=== PATIENT | female | born 1935 | race Caucasian/White ===

== ENCOUNTER → 2016-11-26 | Outpatient (CLI) | payer OTHER, BC | LOC: FLAB 13:00 | PROVIDERS: ATTEND Orthopaedic Surgery Orthopaedic Surgery of the Spine | DX: M51.36 Other intervertebral disc degeneration, lumbar region (principal); K44.9 Diaphragmatic hernia without obstruction or gangrene; I25.10 Atherosclerotic heart disease of native coronary artery without angina pectoris ==

== ENCOUNTER → 2016-12-04 | Outpatient (CLI) | payer OTHER, BC ==
[~2016-12-04] MED LIST: IOPAMIDOL (ISOVUE-M 200) 20 ML VIAL ONE; LIDOCAINE 1% 300 MG/30 ML SDV ONE
== END ==
LOC: FIMAGING 10:55
PROVIDERS: ATTEND Orthopaedic Surgery Orthopaedic Surgery of the Spine
PROC: 3E0R3KZ Introduction of Other Diagnostic Substance into Spinal Canal, Percutaneous Approach (ICD-10-PCS; principal; 2016-12-04)
DX: M48.06 Spinal stenosis, lumbar region (principal); M99.73 Connective tissue and disc stenosis of intervertebral foramina of lumbar region; M51.86 Other intervertebral disc disorders, lumbar region; M89.38 Hypertrophy of bone, other site; M41.56 Other secondary scoliosis, lumbar region
CPT/HCPCS: 64493; 72132; 72265; Q9966

== ENCOUNTER → 2017-03-05 | Outpatient (CLI) | payer OTHER, BC | LOC: BHFA 14:00 | PROVIDERS: ATTEND Internal Medicine Cardiovascular Disease | DX: R94.31 Abnormal electrocardiogram [ECG] [EKG] (principal); I10 Essential (primary) hypertension ==

== ENCOUNTER → 2017-03-07 | Outpatient (CLI) | payer OTHER, BC | LOC: BHFA 09:00 | PROVIDERS: ATTEND Internal Medicine Cardiovascular Disease | DX: R94.31 Abnormal electrocardiogram [ECG] [EKG] (principal); I10 Essential (primary) hypertension; I73.9 Peripheral vascular disease, unspecified | CPT/HCPCS: 78452; 93017; A9500; J2785 ==

== ENCOUNTER 2017-03-18 09:25 | Observation (INO) | payer OTHER, BC ==
--- NOTE | 2017-03-17 22:54 | GHP ---
[f rep st] HISTORY AND PHYSICAL DATE OF ADMISSION: 03/18/2017 HISTORY: The patient is a pleasant 81-year-old woman well known to my practice. She is 2-1/2 years status post an L3-L5 laminectomy with left L5-S1 foraminotomy. She had done well up until a couple o f months ago when she began having increasing left lower extremity pain. She has tried an epidural s teroid injection and a selective nerve root block. These that helped, but not long lasting. She has also tried gabapentin. She is electing to undergo further surgery, and this will be in the form of a left L4-5 facet joint cyst excision revision. She denies any loss of bowel or bladder control. On a visual analog scale of 1-10, she rates her daily pain a 7 to an 8. 100% of her pain is referable to the left lower extremity. SOCIAL HISTORY: Negative for tobacco. She quit smoking approximately 28 years ago. She denies use of tobacco. FAMILY HISTORY: Negative. PAST MEDICAL HISTORY: Irritable bowel syndrome, osteoporosis, hypertension, glaucoma, depression, ga stroesophageal reflux disease, and COPD. 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 ALLERGIES: Bactrim. MEDICATIONS: Include gabapentin 100 mg p.o. b.i.d., Tylenol, Lidoderm patch, Advair, bumetanide, alonso cium, citalopram, clonidine patch, doxazosin, fluticasone, hydralazine, ipratropium, Klor-Con, omepra zole, and Prolia. PHYSICAL EXAMINATION: GENERAL: The patient is alert and oriented x3. CARDIAC: Regular rate and rh ythm without detectable murmur, rub, or gallop. LUNGS: Clear to auscultation. She does not have an y wheezing or rhonchi. NEUROLOGIC: Shows strength of bilateral lower extremities to be 5/5 througho ut with the exception of the left tibialis anterior that is 4+ over 5. She does not have a foot drop . She has decreased sensation in the left dorsum of the foot in the L5 distribution. Straight leg r aising is negative x2. She has an antalgic gait in the left lower extremity. RADIOGRAPHIC STUDIES: The patient has had a CT myelogram, as she is unable to have an MRI due to her cochlear implant. She has a very large left L4-5 synovial facet joint cyst, which also extends dist ally to the level of the L5 vertebral body. IMPRESSION: 1. Left L5 radiculopathy with motor weakness. 2. Two and a half years status post L3-L5 laminectomy and left L5-S1 foraminotomy by myself. 3. 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 PLAN: The patient will undergo a general anesthetic, and then a revision left L4-5 facet joint cyst excision. She understands the potential risks, benefits, possible complications, including but not l imited to, dural tear with CSF leak, meningitis, nerve root injury, partial or complete paralysis, la ck of improvement of symptomatology, inability of obtaining the entire facet cyst, need for further s urgery, DVT, PE, pneumonia, stroke, heart attack, hemorrhage, blindness, and . I will admit her postoperatively for 23 hour observation given her numerous medical conditions. She will be n.p.o. a fter midnight tonight. Copy requested to: Pres[facility]gery Testing /[id number]/MODL
[~2017-03-18 09:25] MED LIST changes: +*PHM DO NOT USE-GENTAMICIN PF 1MG/ML IV PED/NEWBORN SYR IV SCH; +BACITRACIN 50,000 UNITS/10 ML SYR IRR ONE; +BUPIVACAINE 0.25% 30 ML SDV ONE; +GENTAMICIN 80 MG/NACL 100 ML IV ONE; -IOPAMIDOL (ISOVUE-M 200) 20 ML VIAL ONE; -LIDOCAINE 1% 300 MG/30 ML SDV ONE; +THROMBIN (BOVINE) 20,000 UNIT VIAL TP ONE; +ceFAZolin 2 GM/DEXTROSE 100 ML IV ONE
[2017-03-18] MEDS ORDERED: *PHM DO NOT USE-GENTAMICIN PF 1MG/ML IV PED/NEWBORN SYR IV ONE (09:30)
[2017-03-18] MEDS ORDERED: ceFAZolin 2 GM/DEXTROSE 100 ML IV ONE (09:58)
[2017-03-18 10:30] LABS: % IMMATURE GRANULYOCYTES 0.1 % (0.0-1.1); ABSOLUTE IMMATURE GRANULOCYTES 0.01 10^3/uL (0.00-0.10); ADD DIFF? NO; ADD MORPH? NO; ADD SCAN? NO; ATYPICAL LYMPHOCYTE FLAG 10 (0-99); FRAGMENT RBC FLAG 0 (0-99); HEMATOCRIT 39.1 % (38.0-47.0); HEMOGLOBIN 12.8 g/dL (12.6-16.3); LEFT SHIFT FLG 0 (0-99); LIPEMIA HEMOLYSIS FLAG 80 (0-99); MEAN CELL HEMOGLOBIN 30.2 pg (27.9-34.1); MEAN CELL HEMOGLOBIN CONCENTR. 32.7 g/dL (32.4-36.7); MEAN CELL VOLUME 92.2 fL (81.5-99.8); MEAN PLATELET VOLUME 11.6 fL (8.7-11.7); PLATELET CLUMPS FLAG 0 (0-99); PLATELET COUNT 270 10^3/uL (150-400); RED BLOOD CELL COUNT 4.24 10^6/uL (4.18-5.33); RED CELL DISTRIBUTION WIDTH 13.7 % (11.5-15.2)
[2017-03-18] MEDS ORDERED: LR 1,000 ML IV ONE (10:32)
[2017-03-18 10:34] LABS: INR 0.98 (0.83-1.16); PROTIME(PATIENT) 12.9 SEC (12.0-15.0)
--- NOTE | 2017-03-18 10:34 | PDANEPAE ---
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 - Pulmonary History Hx COPD: Yes Hx Asthma/Reactive Airway Disease: No Hx Recent Upper Respiratory Infection: No Hx Oxygen in Use at Home: No Hx Sleep Apnea: No Sleep Apnea Screening Result - Last Documented: Positive Pulmonary History Comment: USES INHALERS FOR COPD - Neurologic History Hx Cerebrovascular Accident: No Hx Seizures: No Hx Dementia: No - Endocrine History Hx Diabetes: No Hypothyroid: Yes Hyperthyroid: No Obesity: no Endocrine History Comment: HYPOTHYROIDISM - Renal History Hx Renal Disorders: Yes Renal History Comment: HX OF RENAL STENT PLACED - Liver History Hx Hepatic Disorders: No - Neurological & Psychiatric Hx Hx Neurological and Psychiatric Disorders: Yes Neurological / Psychiatric History Comment: LITTLE ANXIETY - Cancer History Hx Cancer: Yes Cancer History Comment: 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 IBS - Other Health History Other Health History: VERY HARD OF HEARING HAS COCHLEAR IMPLANT AND HEARING AIDES - Chronic Pain History Chronic Pain: Yes (BACK AND LEFT LEG PAIN) - Surgical History Prior Surgeries: RENAL ARTERY STENT 2005. EYE SURGERY 2004. ROTATOR CUFF IN 2000,1998. CATARACTS. HYSTERECTOMY back sx 2013. HERBER 1974. COCHLEAR IMPLANT 2009 ANE Review of Systems Review of Systems: - Exercise capacity METS (RN): 3 METS ANE Patient History - Allergies Allergies/Adverse Reactions: sulfamethoxazole [From Bactrim] Allergy (Verified 02/22/17 10:07) Rash trimethoprim [From Bactrim] Allergy (Verified 02/22/17 10:07) Rash - Home Medications Home Medications: Bumetanide [Bumex (*)] 2 mg PO DAILY 04/06/14 [Last Taken 03/18/17] Citalopram Hydrobromide [Celexa] 40 mg PO DAILY 04/06/14 [Last Taken 03/18/17] Doxazosin Mesylate [Cardura 4 MG (*)] 4 mg PO DAILY 04/06/14 [Last Taken ] Fluticasone Nasal [Flonase Nasal Fortuna] 2 sprays NASAL DAILY 04/06/14 [Last Taken 04/18/14] Ipratropium 0.06% Nasal [Atrovent 0.06% Nasal] 2 sprays EACHNARE BID 04/06/14 [ Last Taken 04/19/14] Isradipine [Isradipine 5 mg (RX)] 10 mg PO BID 04/06/14 [Last Taken 1 Week Ago ~ 03/11/17] Latanoprost 0.005% [Xalatan 0.005% (*)] 1 drops EACHEYE HS 04/06/14 [Last Taken 03/18/17] Levalbuterol Inhaler [Xopenex Hfa Inhaler (*)] 2 puffs IH DAILY PRN 04/06/14 [ Last Taken 04/19/14] Levothyroxine [Synthroid 50 mcg (*)] 50 mcg PO DAILY06 04/06/14 [Last Taken 1 Week Ago ~03/11/17] Montelukast Sodium [Singulair 10 mg (*)] 10 mg PO DAILY@1800 04/06/14 [Last Taken 04/19/14] Omeprazole [Prilosec 20 mg] 20 mg PO BID 04/06/14 [Last Taken 03/18/17] Potassium Cl [Klor-Con 20 meq (*)] 60 meq PO DAILY 04/06/14 [Last Taken 03/18/17 ] clonIDINE [Catapres (*)] 0.1 mg PO DAILY PRN 04/06/14 [Last Taken 04/19/14] clonIDINE [Catapres-Tts (*)] 2 patch TD Q7D 04/06/14 [Last Taken 3 Months Ago ~ 12/16/16] hydrALAZINE [Apresoline] 25 mg PO BID 04/06/14 [Last Taken 03/18/17] Cholecalciferol (Vitamin D3) [Vitamin D3] 5,000 unit PO HS 02/22/17 [Last Taken 1 Week Ago ~03/11/17] Herbals/Supplements -Info Only 1 ea PO DAILY 02/22/17 [Last Taken 1 Week Ago ~] Ibuprofen [Motrin (*)] 800 mg PO Q4-6PRN PRN 02/22/17 [Last Taken Unknown] Polyethylene Glycol 3350 [Miralax 17 gm (*)] 17 gm PO DAILY 02/22/17 [Last Taken 03/18/17] Timolol 0.25% [TIMOPTIC 0.25% (*)] 1 drop RTEYE DAILY 02/22/17 [Last Taken Unknown] Tiotropium Inhaler [Spiriva Handihaler] 18 mcg IH DAILY 02/22/17 [Last Taken ] Zoledronic Acid 4 mg IV ONCE 02/22/17 [Last Taken 01/28/17] traZODone [traZODONE 50MG (*)] 50 mg PO HS 02/22/17 [Last Taken 03/17/17] - Smoking Hx Smoking Status: Former smoker - Family Anes Hx Family Hx Anesthesia Complications: NONE ANE Labs/Vital Signs - Labs Result Diagrams: 03/18/17 09:58 03/18/17 09:58 - Vital Signs Height: 152.4 cm Weight: 62.596 kg ANE Physical Exam - Airway Neck exam: decreased ROM Mallampati Score: Class 3 Mouth exam: dentures - Pulmonary Pulmonary: no respiratory distress, no rales or rhonchi, clear to auscultation - Cardiovascular Cardiovascular: regular rate and rhythym, systolic murmur - ASA Status ASA Status: III ANE Anesthesia Plan Anesthesia Plan: general endotracheal anesthesia Total IV Anesthesia: No
[2017-03-18 10:35] LABS: APTT 26.9 SEC (23.0-38.0)
[2017-03-18 10:39] LABS: ANION GAP 12 mEq/L (8-16); CALCIUM 9.4 mg/dL (8.5-10.4); CARBON DIOXIDE 25 mEq/l (22-31); CHLORIDE 103 mEq/L (97-110); CREATININE 0.8 mg/dL (0.6-1.0); GLOMERULAR FILTRATION RATE > 60; GLUCOSE 103 mg/dL (70-100); POTASSIUM 4.6 mEq/L (3.5-5.2); SODIUM 140 mEq/L (134-144)
--- NOTE | 2017-03-18 11:05 | PDHPUP ---
History & Physical Update H&P update statement: This history and physical update is based on an assessment of the patient which was completed after admission or registration (within 24 hours), but prior to the surgery/procedure. H&P update: H&P reviewed & patient examined, no change in patient's condition since H&P completed
[2017-03-18] MEDS ORDERED: ONDANSETRON 4 MG/2 ML VIAL ONE (11:24)
[2017-03-18] MEDS ORDERED: PROPOFOL/EMULSION 500 MG/50 ML BOTTLE IV ONE (11:24)
[2017-03-18] MEDS ORDERED: fentaNYL 100 MCG/2 ML INJ ONE ×3 (11:24→14:54)
[2017-03-18] MEDS ORDERED: ROCURONIUM 50 MG/5 ML VIAL ONE (11:24)
[2017-03-18] MEDS ORDERED: RANITIDINE 50 MG/2 ML VIAL ONE (11:24)
[2017-03-18] MEDS ORDERED: PROPOFOL 200 MG/20 ML VIAL ONE (11:24)
[2017-03-18] MEDS ORDERED: REMIFENTANIL HCL 1 MG VIAL ONE (11:24)
[2017-03-18] MEDS ORDERED: SUCCINYLCHOLINE CHLORIDE*ANESTHESIA ONLY*200 MG/10 ML SYR IVP ONE (11:24)
[2017-03-18] MEDS ORDERED: DEXAMETHASONE 4 MG/ML VIAL ONE (11:24)
[2017-03-18] MEDS ORDERED: LIDOCAINE 2% 5 ML SDV ONE (11:27)
[2017-03-18] MEDS ORDERED: PHENYLEPHRINE HCL 100 MCG/ML SYR ONE ×2 (11:31→12:21)
[2017-03-18] MEDS ORDERED: epHEDrine SULFATE 10 MG/ML SYR ONE ×2 (12:00)
[2017-03-18] MEDS ORDERED: methylPREDNISolone SOD SUCC 125 MG/2 ML VIAL ONE (12:37)
[2017-03-18] MEDS ORDERED: ALBUTEROL 3 ML DEYVIAL IH PRN (13:09)
[2017-03-18] MEDS ORDERED: NALOXONE HCL 0.4 MG/ML INJ IVP PRN ×2 (13:09→14:17)
[2017-03-18] MEDS ORDERED: HYDROCODONE/APAP 5/325 TAB PO PRN ×2 (13:09→15:47)
[2017-03-18] MEDS ORDERED: LR 500 ML IV PRN (13:09)
[2017-03-18] MEDS ORDERED: fentaNYL 100 MCG/2 ML INJ IVP PRN ×2 (13:09→14:17)
[2017-03-18] MEDS ORDERED: ACETAMINOPHEN 500 MG TAB PO PRN (13:09)
[2017-03-18] MEDS ORDERED: AVITENE POWDER 1 GM JAR TP ONE (13:35)
[2017-03-18] MEDS ORDERED: ceFAZolin 1 GM VIAL ONE (13:54)
[2017-03-18] MEDS ORDERED: ONDANSETRON 4 MG/2 ML VIAL IVP PRN (14:17)
[2017-03-18] MEDS ORDERED: HYDROmorphONE/DILAUDID 1 MG/ML INJ IVP PRN (14:17)
[2017-03-18] MEDS ORDERED: SUGAMMADEX SODIUM 200 MG/2 ML VIAL IVP ONE (14:20)
--- NOTE | 2017-03-18 14:47 | POSTANESTH ---
Post Anesthetic Evaluation Cardiovascular Status: Normal, Stable, Similar to Pre-Op Cond Respiratory Status: Normal, Stable, Similar to Pre-op Cond. Level of Consciousness/Mental Status: Can Participate in Eval, Alert and Oriented Pain Control: Adequate, Prn Tx Ordered Nausea/Vomiting Control: Adequate, Prn Tx Ordered Complications Possibly Related to Anesthesia: None Noted
[2017-03-18] MEDS ORDERED: diphenhydrAMINE 25 MG CAP PO PRN (15:35)
[2017-03-18] MEDS ORDERED: MAGNESIUM HYDROXIDE 30 ML UDCUP PO PRN (15:35)
[2017-03-18] MEDS ORDERED: POLYETHYLENE GLYCOL 3350 17 GM PKT PO PRN (15:35)
[2017-03-18] MEDS ORDERED: LACTULOSE 20 GM/30 ML UDCUP PO PRN (15:35)
[2017-03-18] MEDS ORDERED: BISACODYL 10 MG SUPP PR PRN (15:35)
[2017-03-18] MEDS ORDERED: ONDANSETRON DISINTEGRATING 4 MG TAB PO PRN (15:35)
[2017-03-18] MEDS ORDERED: ZOLPIDEM TARTRATE 5 MG TAB PO PRN (15:35)
--- NOTE | 2017-03-18 15:35 | POSTOPPROG ---
Post Op Note Date of Operation: 03/18/17 Surgeon: Velma Linder Contract Clerk [employer]: Margarita Chavis SA Anesthesiologist: Jania Coffey, Jasmyn Johnson Anesthesia: GET(General Endotracheal) Pre-op Diagnosis: Left L4-5 large synovial facet cyst Post-op Diagnosis: same Indication: LLE pain Procedure: Revision; Left L4-5 facet cyst excision, L L5 hemilami, L S1 decompression Findings: Abundant epidural fibrosis, facet cyst, ligamentum flavum hypertrophy Inf/Abcess present in the surg proc area at time of surgery?: No Depth: Deep Incisional (Fascial) EBL: 100 cc Complications: none. No changes in neuro monitoring. Specimen(s): left L4-5 facet cyst and scar tissue to path
[2017-03-18] MEDS ORDERED: LEVALBUTEROL INHALER 200 PUFFS/15 GM MDI IH PRN (15:42)
[2017-03-18] MEDS ORDERED: ZOLEDRONIC ACID 4 MG IV SCH (15:45)
[2017-03-18] MEDS ORDERED: NS 1,000 ML IV SCH (15:45)
[2017-03-18] MEDS: ONDANSETRON 4 MG/2 ML VIAL IVP PRN (16:09)
[2017-03-18] MEDS: oxyCODONE IR 5 MG TAB PO PRN (17:00)
[2017-03-18] MEDS: DIAZEPAM 5 MG TAB PO PRN (17:05)
[2017-03-18] MEDS ORDERED: traZODone 50 MG TAB PO SCH (21:00)
[2017-03-18] MEDS ORDERED: CHOLECALCIFEROL VIT D3 2,000 UNITS TAB/CAP PO SCH (21:00)
[2017-03-18] MEDS ORDERED: NON-FORMULARY NEW DRUG (Cholecalciferol (Vitamin D3) [Vitamin D3] 5,000 UNIT) PO SCH (21:00)
[2017-03-18] MEDS ORDERED: NON-FORMULARY NEW DRUG (Omeprazole [Prilosec 20 Mg] 20 MG) PO SCH (21:00)
[2017-03-18] MEDS ORDERED: LATANOPROST 0.005% 2.5 ML OPHT DROPS EACHEYE SCH (21:00)
[2017-03-18] MEDS: hydrALAZINE 25 MG TAB PO SCH (21:27)
[2017-03-18] MEDS: PANTOPRAZOLE SODIUM 40 MG TAB PO SCH (21:28)
[2017-03-18] MEDS: SENNOSIDES/DOCUSATE SODIUM TAB PO SCH (21:28)
[2017-03-18] MEDS: ISRADIPINE PO SCH (21:38)
[2017-03-18] MEDS: MONTELUKAST SODIUM 10 MG TAB PO SCH (22:01)
[2017-03-18] MEDS: IPRATROPIUM 0.06% NASAL SPRAY EACHNARE SCH (22:07)
--- NOTE | 2017-03-19 05:19 | GOP ---
[f rep st] OPERATIVE REPORT DATE OF OPERATION: 03/18/2017 SURGEON: Velma Khan MD [employer]CH [employer] OPERATOR: Dameon Chavis SA. ANESTHESIA: Dr. Martinez Coffey and Dr. Rc Johnson, general endotracheal intubation. PREOPERATIVE DIAGNOSIS: 1. Three years status post L3-L5 laminectomy and left L5-S1 laminal foraminotomy by myself. 2. Recurrent left lower extremity radiculopathy. 3. Large apparent left L4-5 synovial facet cyst causing severe stenosis. POSTOPERATIVE DIAGNOSIS: 1. Three years status post L3-L5 laminectomy and left L5-S1 laminal foraminotomy by myself. 2. Recurrent left lower extremity radiculopathy. 3. Large apparent left L4-5 synovial facet cyst causing severe stenosis. PROCEDURE PERFORMED: 1. Left L4-5 revision facet joint cyst excision, extradural. 2. Revision left L5-S1 laminal foraminotomy. 3. Placement of lumbar epidural steroid injection for postoperative anti-inflammatory effect. FINDINGS: Very large left L4-5 facet joint cyst, nodule, and adhered ligamentum flavum hypertrophy c ausing profound stenosis, also moderate to severe stenosis on the left at L5-S1. ESTIMATED BLOOD LOSS: 100 cc INDICATIONS: Arlen is a pleasant woman, well known to my practice. Three years ago she underwent an L 3-L5 laminectomy and left L5-S1 laminal foraminotomy by myself. She had been doing well up until mor e recently. She has had a recurrence of her left lower extremity pain mainly in the L5 distribution. A CT myelogram was obtained given she cannot have MRIs, and this showed a large extradural mass on the left at L4-5 which was presumed to be a facet cyst. She has elected to undergo surgery. No guar antees were given in regard to surgical outcome. Potential risks, benefits, and possible complicatio ns were thoroughly discussed including but not limited to, dural tear with CSF leak, meningitis, nerv e root injury, partial or complete paralysis, lack of improvement in symptomatology, infection, need for further surgery, meningitis, DVT, PE, pneumonia, stroke, heart attack, hemorrhage, blindness, and . Patient's questions were answered thoroughly. DESCRIPTION OF PROCEDURE: Procedure after obtaining both written and verbal consent from the patient , she was brought to the operating room, where she underwent a general endotracheal intubation. Fole y catheter was placed. Intraoperative somatosensory evoked potentials, and EMGs were set up and perf ormed. Baseline potentials were normal. Patient received IV antibiotics. A timeout was performed w ith the entire operating room team, confirming patient's name, date of , planned surgical proced ure including levels, antibiotics given, and allergies to medications. A lateral x-ray was obtained for localization. The lumbar spine was prepped and draped in a normal sterile fashion. A midline longitudinal posterior incision was made through the previous scar. This was incised with a 10-blade knife. The incision was opened up down to the deep fascial layer and a self-retaining ret ractor was placed. Bovie cautery was used to retract the paraspinal muscles lateralward. An intraop erative x-ray confirmed localization to the L4 spinous process. Under loupe magnification, using a W raviiaPrime Focus retractor at the L4-5 level on the left, a 5 mm round bur was then used to decorticate the re grown left bone of the L5 lamina and some of the L4 lamina. A 2-0 curved curette was used to create a plane between the ligamentum flavum and the epidural space on the left at L4-5. The dura was ident ified and protected. The incision was extended slightly distally to follow the pathology. There bec marilu apparent a very large mass of tissue that appeared to be a combination of severe ligamentum flavu m hypertrophy with adhesions as well as a synovial facet cyst with a nodule in it. The nodule was re moved and sent to pathology and the preliminary report stated no evidence of malignancy. Also clinic ally there was no evidence of infection. The facet cyst was extradural but was attached to the dura in numerous places and was only able to be partially freed up and excised. Overall approximately 80% to 85% of the tissue causing a severe stenosis of the midline thecal sac and the exiting nerve roots could be removed safely. A foraminotomy was performed on the left at L4-5 and a laminal foraminotom y was performed on the left at L5-S1 with a complete left L5 hemilaminectomy. Therefore, the left L4 , L5 and S1 nerve roots were fully decompressed using a 2 and 3 mm Kerrison out in the neural foramen . Hemostasis was obtained with Avitene, bipolar cautery and thrombin-soaked Gelfoam. There were no changes in spinal cord monitoring. The dura was intact without any evidence of spinal fluid leakage. At this time, the wound was irrigated, hemostasis was obtained and 125 mg of Solu-Medrol was placed over the left L4-5 level for postoperative anti-inflammatory effect. The wound was then closed usin g a #1 Vicryl, 0 Vicryl, and skin georgie. Sterile dressing was applied. Back brace was placed on i n the operating room and patient was rolled to the supine position. Nieves catheter was removed. Spo nge and needle counts were correct. The patient was extubated in the operating room, brought to the recovery room in satisfactory condition. COMPLICATIONS: None. There were no changes in spinal cord monitoring. POSTOPERATIVE PLAN: Close neurologic observation, close airway observation, PT, OT and pain control. /[id number]/MODL
[2017-03-19] MEDS ORDERED: LEVOTHYROXINE 50 MCG TAB PO SCH (06:00)
[2017-03-19] MEDS: oxyCODONE IR 5 MG TAB PO PRN ×5 (06:10→17:56)
[2017-03-19 07:36] VITALS: TEMP 98.6
[2017-03-19] MEDS: SENNOSIDES/DOCUSATE SODIUM TAB PO SCH (07:42)
[2017-03-19] MEDS: hydrALAZINE 25 MG TAB PO SCH (07:44)
[2017-03-19] MEDS: DIAZEPAM 5 MG TAB PO PRN ×2 (07:46→16:21)
[2017-03-19] MEDS: PANTOPRAZOLE SODIUM 40 MG TAB PO SCH (07:46)
[2017-03-19] MEDS: ONDANSETRON 4 MG/2 ML VIAL IVP PRN (08:00)
[2017-03-19] MEDS: IPRATROPIUM 0.06% NASAL SPRAY EACHNARE SCH (08:08)
[2017-03-19] MEDS: ISRADIPINE PO SCH (08:09)
[2017-03-19] MEDS ORDERED: FLUTICASONE NASAL 120 SPRAYS/16 GM MDI EACHNARE SCH (09:00)
[2017-03-19] MEDS ORDERED: CITALOPRAM 20 MG TAB PO SCH (09:00)
[2017-03-19] MEDS ORDERED: TIOTROPIUM INHALER 18 MCG/DOSE 5 DOSE/MDI IH SCH (09:00)
[2017-03-19] MEDS ORDERED: DOXAZOSIN MESYLATE 4 MG TAB PO SCH (09:00)
[2017-03-19] MEDS ORDERED: BUMETANIDE 2 MG TAB PO SCH (09:00)
[2017-03-19] MEDS ORDERED: POTASSIUM CL 20 MEQ TAB PO SCH (09:00)
[2017-03-19] MEDS ORDERED: TIMOLOL 0.5% 15 ML OPHT.BTL RTEYE SCH (09:00)
[2017-03-19] MEDS ORDERED: NON-FORMULARY NEW DRUG (Citalopram Hydrobromide [Celexa] 40 MG) PO SCH (09:00)
[2017-03-19] MEDS ORDERED: PROCHLORPERAZINE MALEATE 10 MG TAB PO PRN (11:55)
[2017-03-19] MEDS ORDERED: PROMETHAZINE HCL 25 MG/ML INJ IVP PRN (11:56)
[2017-03-19 16:06] VITALS: BP 123/66; PULSE 81; RESP 16; O2SAT 92
--- NOTE | 2017-03-19 16:07 | ASMTCMCOM ---
CM Note CM Note Notes: Pt has hung, mylar for support. OT rec HHC vs home, PT eval pending. CM to follow for d/c needs. Date Signed: 03/19/2017 04:06 PM Electronically Signed By:DALE Mayer
--- NOTE | 2017-03-19 17:26 | SOAPPROG ---
HIREN Progress Note Assessment/Plan: Assessment: Plan: 03/19/17 17:10 post op day 1, s/p Revision Left L4-5 facet cyst excision, rev. Left L5 hemilami and L5-S1 laminoforaminotomy. Pt doing well and ready for discharge. Subjective: Pt states her left leg feels much better. Nausea gone now. Objective: Vital Signs Temp Pulse Resp BP Pulse Ox 37.0 C 81 16 123/66 H 92 03/19/17 16:00 03/19/17 16:00 03/19/17 16:00 03/19/17 16:00 03/19/17 16:00 Laboratory Results 03/18/17 09:58 03/18/17 09:58 03/18/17 03/19/17 03/20/17 05:59 05:59 05:59 Intake Total 900 Output Total 350 Balance 550 PT 12.9 SEC (12.0-15.0) 03/18/17 09:58 INR 0.98 (0.83-1.16) 03/18/17 09:58 BLE motor 5/5. Naren's negative x 2. Wound with mild serosang. drainage. ICD10 Worksheet Patient Problems: Problems Problem Status Onset Lumbar stenosis with neurogenic claudication Acute
[2017-03-19] MEDS: MONTELUKAST SODIUM 10 MG TAB PO SCH (17:56)
--- NOTE | 2017-03-20 16:05 | ASDISCHSUM ---
Discharge Information Plan Status:Home with No Needs Medically Cleared to Leave: Discharge Date:03/19/2017 06:05 PM CM D/C Disposition:Home, Routine, Self-Care ADT D/C Disposition:Home, Routine, Self-Care Projected Discharge Date:03/19/2017 06:05 PM Transportation at D/C: Discharge Delay Reason: Follow-Up Date:03/19/2017 06:05 PM Discharge Slot: Final Diagnosis: Placement Information Patient Contact Information Contact Name:SHADE Relationship: Address:[address] Work Phone: City:[place] Alternate Phone: [facility]/Zip Code:[place] [address] Email: Financial Information Financial Class: Primary Plan Desc:MEDICARE OUTPATIENT Primary Plan Number:[id number] Secondary Plan Desc:[employer] Secondary Plan Number:[id number] Assessment Information [facility] CM Progress Note CM Note CM Note Notes: Pt has tan persaud for support. OT rec HHC vs home, PT eval pending. CM to follow for d/c needs. Date Signed: 03/19/2017 04:06 PM Electronically Signed By:DALE Mayer Intervention Information Intervention Type:*KOCH-Signed Date of Service:03/19/2017 09:30 AM Patient Type:Observation Staff Member:Stacy Lux Hours: Discipline: Severity: Comment:
== END 2017-03-19 18:05 | disposition home or self-care (01) ==
LOC: F3E 09:25 → F3N 15:30
PROVIDERS: ADMIT Orthopaedic Surgery Orthopaedic Surgery of the Spine; ATTEND Orthopaedic Surgery Orthopaedic Surgery of the Spine
DX: M71.38 Other bursal cyst, other site (principal); M25.80 Other specified joint disorders, unspecified joint; M48.06 Spinal stenosis, lumbar region; M54.16 Radiculopathy, lumbar region; I15.0 Renovascular hypertension; Z95.820 Peripheral vascular angioplasty status with implants and grafts; J44.9 Chronic obstructive pulmonary disease, unspecified; I27.2 Other secondary pulmonary hypertension; I34.0 Nonrheumatic mitral (valve) insufficiency; I36.0 Nonrheumatic tricuspid (valve) stenosis
CPT/HCPCS: 62322; 63030; 76001; 97161; 97165; G8978; G8979; G8980; G8987; G8988; J0330; J0690; J1100; J1580; J2370; J2405; J2550; J2704; J2780; J3010

== ENCOUNTER → 2017-12-26 | Outpatient (CLI) | payer OTHER, BC | LOC: BRMIMAGING 13:58 | PROVIDERS: ATTEND Family Medicine | DX: Z12.31 Encounter for screening mammogram for malignant neoplasm of breast (principal); Z13.820 Encounter for screening for osteoporosis; M81.0 Age-related osteoporosis without current pathological fracture; Z78.0 Asymptomatic menopausal state ==

== ENCOUNTER → 2018-04-17 | Outpatient (CLI) | payer OTHER, BC | LOC: FIMAGING 13:27 | PROVIDERS: ATTEND Physical Medicine & Rehabilitation Neuromuscular Medicine | DX: M51.36 Other intervertebral disc degeneration, lumbar region (principal); M43.16 Spondylolisthesis, lumbar region ==

== ENCOUNTER → 2018-12-16 | Outpatient (CLI) | payer OTHER, BC | LOC: EMCIMAGING 11:28 ==